=== PATIENT | male | born 1945 | race Caucasian/White ===

== ENCOUNTER → 2016-05-17 | Outpatient (CLI) | payer MEDICARE ==
[~2016-05-17] MED LIST: BAYER CHEWABLE81 MG PO; CATAPRES-DPS0.1 MG PO; ISOPTIN SR240 MG PO; METOPROLOL TART25 MG PO; NORCO 5-325 TA1 EACH PO; PROVENTIL HFA6.7 GM IH; VITAMIN B PO
== END | disposition home or self-care (01) ==
LOC: RAD.S 14:20
DX: M79.604 Pain in right leg (principal); M79.605 Pain in left leg; M79.89 Other specified soft tissue disorders